=== PATIENT | female | born 1970 | race Caucasian/White ===

== ENCOUNTER 2018-02-03 18:22 | Emergency (ER) | payer SELFPAY ==
[~2018-02-03] VITALS: Ht 172.7 cm; Wt 63.6 kg
[2018-02-03 18:54] VITALS: Ht 172.7 cm; Wt 63.6 kg
[2018-02-03] MEDS ORDERED: NORCO 7.5/325 T1 TA1 PO (18:56)
[2018-02-03] MEDS ORDERED: ULTRAM50 MG PO (20:37)
[2018-02-03 21:23] VITALS: BP 113/70
== END 2018-02-03 21:24 | disposition home or self-care (01) ==
LOC: D.ER 18:22
DX: S52.502G Unspecified fracture of the lower end of left radius, subsequent encounter for closed fracture with delayed healing (principal); S62.512G Displaced fracture of proximal phalanx of left thumb, subsequent encounter for fracture with delayed healing; S62.611G Displaced fracture of proximal phalanx of left index finger, subsequent encounter for fracture with delayed healing; V49.9XXD Car occupant (driver) (passenger) injured in unspecified traffic accident, subsequent encounter; F17.200 Nicotine dependence, unspecified, uncomplicated